=== PATIENT | female | born 1975 | race Caucasian/White ===

== ENCOUNTER → 2017-02-12 | Outpatient (CLI) | payer BC ==
[2015-06-05 12:36] VITALS: BP 100/56
--- NOTE | 2017-02-13 08:32 | MG ---
Examination: Bilateral screening mammogram. Clinical history: Routine screening. Technique: Digital CC and MLO views of both breasts were obtained. Computer aided detection analysis was performed and used during the interpretation. Comparison: 02/09/2016. Findings: The breasts are composed of scattered fibroglandular densities. There is a new ill-defined the density present in the upper outer aspect of the right breast in the posterior depth. Additional imaging evaluation is recommended, with spot compression magnification v iews in the CC and MLO projections, a lateral view of the right breast and a right breast ultrasound . No suspicious mass, area of architectural distortion or suspicious cluster of microcalcifications is noted in the left breast. Impression: 1. New density in the right breast, as described above. BI-RADS category 0 (ZERO) - ASSESSMENT INCOMPLETE; ADDITIONAL IMAGING IS NEEDED. Recommend immediate recall for additional imaging evaluation, as described above. Diagnostic CAD was utilized and reviewed. * 0 (ZERO) - ASSESSMENT INCOMPLETE; ADDITIONAL IMAGING IS NEEDED. * 0C - ASSESSMENT INCOMPLETE, NEEDS ADDITIONAL IMAGING EVALUATION AND/OR PRIOR MAMMOGRAMS FOR COMPAR MEGAN. * 1/1 (ONE) - NEGATIVE. * 2/II (TWO) - BENIGN FINDINGS. * 3/III (THREE) - PROBABLY BENIGN FINDING; SHORT INTERVAL FOLLOW-UP SUGGESTED. * 4/IV (FOUR) - SUSPICIOUS ABNORMALITY; BIOPSY SHOULD BE CONSIDERED. * 5/V - HIGHLY SUSPICIOUS OF MALIGNANCY; BIOPSY SHOULD BE PERFORMED. * 6/IV - KNOWN BIOPSY PROVEN MALIGNANCY-APPROPRIATE ACTION SHOULD BE TAKEN. A NEGATIVE X-RAY REPORT SHOULD NOT DELAY BIOPSY IF A DOMINANT OR CLINICALLY SUSPICIOUS MASS IS PRESENT; 4 TO 8 PERCENT OF CANCERS ARE NOT IDENTIFIED BY X-RAY. A NEGATIVE REPORT MAY REINFORCE THE CLINICAL IMPRESSION. ADENOSIS AND DENSE BREASTS MAY OBSCURE AN UNDERLYING NEOPLASM. Reported By:
== END ==
LOC: RAD 15:21
PROVIDERS: ATTEND Physician Assistant Medical
DX: Z12.31 Encounter for screening mammogram for malignant neoplasm of breast (principal)
CPT/HCPCS: 77067

== ENCOUNTER → 2017-03-01 | Outpatient (CLI) | payer BC ==
[2015-06-05 12:36] VITALS: BP 100/56
--- NOTE | 2017-03-01 15:56 | US ---
HISTORY: Followup right breast density Comparison: 02/12/2017 FINDINGS: Right diagnostic mammogram: Spot-compression views confirm persistent density or possibly 2 separate nodular densities in the upper-outer quadrant of the right breast with normal appearance of the dwain rounding parenchyma. No suspicious calcifications or architectural distortion identified. Ultrasound will be obtained to further characterize the densities. Right breast ultrasound: Targeted ultrasound of the right breast was performed from the 9-12 o'clock positions. At the 10 o'clock position there is a hypoechoic lesion with central fatty hilum likely representing an intramammary lymph node measuring 2 x 3 x 4 mm. No other cystic or solid masses are identified. IMPRESSION: Intramammary lymph node corresponding to the right breast density. ACR CATEGORY 2: Benign findings. FOLLOW-UP EXAM 1 YEAR. * 0 (ZERO) - ASSESSMENT INCOMPLETE; ADDITIONAL IMAGING IS NEEDED. * 1/1 (ONE) - NEGATIVE. * 2/II (TWO) - BENIGN FINDINGS. * 3/III (THREE) - PROBABLY BENIGN FINDING; SHORT INTERVAL FOLLOW-UP SUGGESTED. * 4/IV (FOUR) - SUSPICIOUS ABNORMALITY; BIOPSY SHOULD BE CONSIDERED. * 5/V - HIGHLY SUSPICIOUS OF MALIGNANCY; BIOPSY SHOULD BE PERFORMED. A NEGATIVE X-RAY REPORT SHOULD NOT DELAY BIOPSY IF A DOMINANT OR CLINICALLY SUSPICIOUS MASS IS PRESENT; 4 TO 8 PERCENT OF CANCERS ARE NOT IDENTIFIED BY X-RAY. A NEG ATIVE REPORT MAY REINFORCE THE CLINICAL IMPRESSION. ADENOSIS AND DENSE BREASTS MAY OBSCURE AN UNDER LYING NEOPLASM. Reported By:
== END | disposition home or self-care (01) ==
LOC: RAD 14:18
PROVIDERS: ATTEND Physician Assistant Medical
DX: R92.8 Other abnormal and inconclusive findings on diagnostic imaging of breast (principal)
CPT/HCPCS: 76642; 77065